=== PATIENT | female | born 1945 | race Caucasian/White ===

== ENCOUNTER 2018-02-18 12:02 | Inpatient (IN) | payer MEDICARE, MEDICAID ==
[~2018-02-18] VITALS: Ht 160 cm; Wt 40.0 kg
[~2018-02-18 12:02] MED LIST: AMLO10TA80 PO; BENA1TAB18 PO; FURO40TA5 PO; LISI-604 PO; MECL-109 PO; POTA10TA15 PO
[2018-02-18] MEDS ORDERED: SODIUM CHLORIDE 0.9% 1,000 ML IV ONE (12:21)
[2018-02-18 13:34] LABS: BASOPHILS % 0.5 % (0.0-2.0); EOSINOPHILS % 0.1 % (0.0-5.0); HEMATOCRIT. 41.7 % (36.0-48.0); HEMOGLOBIN. 14.1 g/dL (12.0-16.0); LYMPHOCYTES % 23.7 % (20.0-50.0); MEAN CORPUSCULAR HEMOGLOBIN 28.8 pg (28.0-32.0); MEAN CORPUSCULAR VOLUME 84.8 fL (81.0-99.0); MEAN PLATELET VOLUME 7.1 fl (7.4-10.4); MONOCYTES % 5.9 % (2.0-8.0); NEUTROPHILS % 69.8 % (40.0-76.0); PLATELET 391 x1000/uL (130-400); RED BLOOD CELL COUNT 4.91 mill/uL (4.2-5.4); RED CELL DISTRIBUTION WIDTH 15.2 % (11.6-14.6)
[2018-02-18 13:40] LABS: PROTHROMBIN TIME 9.9 sec (9.1-11.1)
[2018-02-18 13:41] LABS: CHLORIDE 81 mEq/L (98-107)
[2018-02-18] MEDS ORDERED: SODIUM CHLORIDE 0.9% 1000ML BAG (SEPSIS BOLUS) IV ONE (14:15)
[2018-02-18] MEDS ORDERED: POTASSIUM CHLORIDE 20MEQ TABLET SR PO ONE (14:45)
[2018-02-18 15:00] LABS: CLARITY URINE CLEAR (CLEAR); COLOR URINE YELLOW (YELLOW); KETONES URINE NEGATIVE (NEGATIVE); LEUKOCYTE ESTERASE URINE TRACE (NEGATIVE); NITRITE URINE NEGATIVE (NEGATIVE); OCCULT BLOOD URINE NEGATIVE (NEGATIVE); PH URINE 6.5 (4.5-8.0); PROTEIN URINE NEGATIVE (NEGATIVE); SPECIFIC GRAVITY URINE 1.009 (1.005-1.030); UROBILINOGEN URINE 0.2 E.U./dL (0.2-1.0)
[2018-02-18] MEDS ORDERED: PIPERACILLIN/TAZ 3.375G PREMIX 50 ML IV ONE (15:15)
[2018-02-18] MEDS ORDERED: VANCOMYCIN 1 G PREMIX 200 ML IV ONE (15:15)
[2018-02-18] MEDS ORDERED: LEVETIRACETAM 500MG PREMIX 100 ML IV ONE (15:30)
[2018-02-18 18:07] VITALS: BP 170/50
[2018-02-18] MEDS ORDERED: ONDANSETRON HCL 4MG/2ML INJ IV PRN (18:15)
[2018-02-18] MEDS ORDERED: BISACODYL 10MG SUPP PR PRN (18:15)
[2018-02-18] MEDS ORDERED: MECLIZINE 25MG TABLET PO PRN (18:15)
[2018-02-18] MEDS ORDERED: ACETAMINOPHEN 325MG TABLET PO PRN (18:15)
[2018-02-18] MEDS ORDERED: HYDRALAZINE 20MG/ML VIAL IV PRN (18:15)
[2018-02-18] MEDS ORDERED: CLONIDINE 0.1MG TABLET PO PRN (18:15)
[2018-02-18] MEDS ORDERED: IPRATROPIUM/ALBUTEROL 0.5-3(2.5)MG/3ML NEB INH PRN (18:15)
[2018-02-18] MEDS ORDERED: LORAZEPAM 2MG/ML CPJ IV PRN (18:15)
[2018-02-18] MEDS ORDERED: ENOXAPARIN 40MG/0.4ML SYR SUBCUT SCH (18:15)
[2018-02-18] MEDS ORDERED: DIPHENHYDRAMINE 50MG/ML VIAL IV PRN (18:15)
[2018-02-18] MEDS ORDERED: GUAIFENESIN 200MG/10ML SUGAR FREE UDC PO PRN (18:15)
[2018-02-18 18:22] VITALS: BP 149/67
[2018-02-18] MEDS ORDERED: MAGNESIUM SULFATE 2 GM in DEXTROSE 5% WATER 50 ML IV PRN (18:36)
[2018-02-18] MEDS: SODIUM CHLORIDE 0.9% 1,000 ML IV SCH (19:48)
[2018-02-18] MEDS ORDERED: POTASSIUM CHLORIDE INJ 40 MEQ in DEXT 5% WATER 250 ML IV SCH (20:00)
[2018-02-18 20:06] VITALS: BP 118/48
[2018-02-18] MEDS: ENOXAPARIN 30MG/0.3ML SYR SUBCUT SCH (21:49)
[2018-02-18 22:00] VITALS: BP 114/44
[2018-02-18] MEDS: LEVETIRACETAM 500 MG in SODIUM CHLORIDE 0.9% 100 ML IV SCH (23:47)
[2018-02-19] VITALS (14 sets, daily range): BP systolic 103–164; BP diastolic 30–83
[2018-02-19] MEDS: SODIUM CHLORIDE 0.9% 1,000 ML IV SCH ×2 (05:45→14:26)
[2018-02-19 05:59] LABS: BASOPHILS % 0.5 % (0.0-2.0); EOSINOPHILS % 0.1 % (0.0-5.0); HEMATOCRIT. 39.9 % (36.0-48.0); HEMOGLOBIN. 13.4 g/dL (12.0-16.0); LYMPHOCYTES % 22.9 % (20.0-50.0); MEAN CORPUSCULAR VOLUME 83.9 fL (81.0-99.0); MONOCYTES % 7.6 % (2.0-8.0); NEUTROPHILS % 68.9 % (40.0-76.0); PLATELET 360 x1000/uL (130-400); RED BLOOD CELL COUNT 4.76 mill/uL (4.2-5.4); RED CELL DISTRIBUTION WIDTH 14.9 % (11.6-14.6)
[2018-02-19] MEDS: BENAZEPRIL 10MG TABLET PO SCH (08:53)
[2018-02-19] MEDS: AMLODIPINE 10MG TABLET PO SCH (08:54)
[2018-02-19] MEDS: LEVETIRACETAM 500 MG in SODIUM CHLORIDE 0.9% 100 ML IV SCH ×2 (09:12→21:55)
[2018-02-19] MEDS ORDERED: MAGNESIUM 2 G PREMIX 50 ML IV ONE (12:15)
[2018-02-19] MEDS ORDERED: METO5TAB69 PO (12:15)
[2018-02-19] MEDS ORDERED: POTASSIUM CHLORIDE 20MEQ TABLET SR PO NR (12:15)
[2018-02-19] MEDS ORDERED: LEVE500T78 PO (12:32)
[2018-02-19] MEDS ORDERED: LOSA50TA20 PO (12:32)
[2018-02-19] MEDS ORDERED: ASPI-1158 PO (12:32)
[2018-02-19] MEDS ORDERED: MAGNESIUM SULFATE 2 GM in DEXTROSE 5% WATER 50 ML IV NR (14:00)
[2018-02-19] MEDS: ENOXAPARIN 30MG/0.3ML SYR SUBCUT SCH (21:55)
[2018-02-20] VITALS (8 sets, daily range): BP systolic 96–158; BP diastolic 41–66
[2018-02-20] MEDS: SODIUM CHLORIDE 0.9% 1,000 ML IV SCH (02:45)
[2018-02-20 06:20] LABS: PHOSPHORUS 2.1 mg/dL (2.5-4.9)
[2018-02-20 06:22] LABS: EOSINOPHILS % 0.3 % (0.0-5.0); HEMATOCRIT. 35.7 % (36.0-48.0); HEMOGLOBIN. 12.1 g/dL (12.0-16.0); MEAN CORPUSCULAR HEMOGLOBIN 28.8 pg (28.0-32.0); MEAN CORPUSCULAR VOLUME 84.7 fL (81.0-99.0); MEAN PLATELET VOLUME 7.2 fl (7.4-10.4); MONOCYTES % 8.2 % (2.0-8.0); NEUTROPHILS % 57.5 % (40.0-76.0); PLATELET 325 x1000/uL (130-400); RED BLOOD CELL COUNT 4.22 mill/uL (4.2-5.4); RED CELL DISTRIBUTION WIDTH 15.2 % (11.6-14.6)
[2018-02-20] MEDS: BENAZEPRIL 10MG TABLET PO SCH (08:08)
[2018-02-20] MEDS: AMLODIPINE 10MG TABLET PO SCH (08:09)
[2018-02-20] MEDS: LEVETIRACETAM 500 MG in SODIUM CHLORIDE 0.9% 100 ML IV SCH (09:34)
[2018-02-20] MEDS ORDERED: POTASSIUM PHOS,M-BASIC-D-BASIC 15 MMOL in DEXT 5% WATER 245 ML IV NR (10:00)
[2018-02-20] MEDS ORDERED: AMLODIPINE 2.5MG TABLET PO SCH (13:00)
[2018-02-20 14:36] LABS: T4 FREE 1.1 ng/dL (0.76-1.46)
== END 2018-02-20 18:51 | disposition home health service (06) | DRG 100 ==
LOC: ER 12:02 → 3WST 15:23 → EDBEDREQ 15:32 → ENRESERV 15:49
PROVIDERS: ADMIT Internal Medicine; ATTEND Internal Medicine
DX: G40.909 Epilepsy, unspecified, not intractable, without status epilepticus (principal); N17.0 Acute kidney failure with tubular necrosis; E87.1 Hypo-osmolality and hyponatremia; E46 Unspecified protein-calorie malnutrition; Z68.1 Body mass index [BMI] 19.9 or less, adult; E87.4 Mixed disorder of acid-base balance; I10 Essential (primary) hypertension; E87.6 Hypokalemia; E87.8 Other disorders of electrolyte and fluid balance, not elsewhere classified; I49.5 Sick sinus syndrome; M19.90 Unspecified osteoarthritis, unspecified site; E86.0 Dehydration; E86.1 Hypovolemia; F03.90 Unspecified dementia, unspecified severity, without behavioral disturbance, psychotic disturbance, mood disturbance, and anxiety; E83.42 Hypomagnesemia; E83.39 Other disorders of phosphorus metabolism; E04.9 Nontoxic goiter, unspecified; J44.9 Chronic obstructive pulmonary disease, unspecified; Z72.0 Tobacco use; Z82.49 Family history of ischemic heart disease and other diseases of the circulatory system; Z83.3 Family history of diabetes mellitus; Z86.73 Personal history of transient ischemic attack (TIA), and cerebral infarction without residual deficits; Z90.710 Acquired absence of both cervix and uterus; Z88.6 Allergy status to analgesic agent; Z79.899 Other long term (current) drug therapy
CPT/HCPCS: 36415; 70450; 71045; 80048; 80053; 81003; 82550; 83605; 83735; 84100; 84439; 84443; 85025; 85610; 87040; 87086; 92610; 93005; 93970; 96361; 96365; 96366; 97116; 97162; 97530; 99285; J1650; J1953; J2543; J3370; J3475; J3480; J3490; J7030; J7050; J7060; A4315